=== PATIENT | male | born 1960 | race Caucasian/White ===

== ENCOUNTER → 2020-01-11 | Outpatient (CLI) | payer MEDICAID ==
[~2020-01-11] MED LIST: MILK200C4 PO
--- NOTE | 2020-01-11 14:11 | Diagnostic Imaging Report ---
PROCEDURE: US Abdomen, limited. TECHNIQUE: Multiple realtime grayscale images were obtained over the abdomen in various projections. INDICATION: Left inguinal pain. FINDINGS: Sonographic interrogation of the left groin region was performed both without and with Valsalva maneuvers. There is a heterogeneous region at this location measuring 5.5 x 2.3 x 4.1 cm which appears to increase with Valsalva, suggestive of an inguinal hernia. There appears to be some fluid within the hernia sac. IMPRESSION: Features most consistent with left inguinal hernia. Dictated by: Dictated on workstation # [id number]
== END ==
LOC: RAD 13:26
PROVIDERS: ATTEND Pediatrics
DX: K41.30 Unilateral femoral hernia, with obstruction, without gangrene, not specified as recurrent (principal)
CPT/HCPCS: 76705

== ENCOUNTER → 2021-04-27 | Outpatient (CLI) | payer MEDICAID ==
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
== END ==
LOC: RAD 10:31
PROVIDERS: ATTEND Pediatrics
DX: M47.812 Spondylosis without myelopathy or radiculopathy, cervical region (principal); S19.9XXA Unspecified injury of neck, initial encounter; V89.2XXA Person injured in unspecified motor-vehicle accident, traffic, initial encounter
CPT/HCPCS: 72141

== ENCOUNTER → 2023-06-04 | Outpatient (CLI) | payer MEDICAID ==
--- NOTE | 2023-06-04 13:37 | Diagnostic Imaging Report ---
INDICATION: M15.0, history of rheumatoid arthritis. COMPARISON: None available FINDINGS: AP Spine L1-L4: [BMD (g/cm2): 0.955] [T-Score: -2.4] [Z-Score: -2.2] [BMD Previous: na] [BMD % Change: na] LT Hip Neck: [BMD (g/cm2): 0.709] [T-Score: -2.8] [Z-Score: -1.9] LT Hip Total: [BMD (g/cm2):0.782] [T-Score:-2.2] [Z-Score: -1.8] [BMD Previous: na] [BMD % Change: na] RT Hip Neck: [BMD (g/cm2):0.762] [T-Score:-2.4] [Z-Score:-1.5] RT Hip Total: [BMD (g/cm2):0.901] [T-score:-1.4] [Z-Score:-1.0] [BMD Previous:na] [BMD % Change:na] *Indicates significant change from prior examination based on 95% confidence level. World Health Organization criteria for BMD interpretation classify patients as Normal (T-score at or above -1.0), Osteopenic (T-score between -1.0 and -2.5) or Osteoporotic (T-score at or below -2.5). LIMITATIONS AND MODIFICATION: None. FRACTURE RISK (FRAX SCORE): The ten year probability of (%): Major Osteoporotic Fracture: [12.6] Hip Fracture: [3.8] IMPRESSION: 1. Osteoporosis. 2. Baseline examination. 3. See below National Osteopor[employer] guidelines on when to potentially initiate pharmacologic therapy. Based on the National Osteoporosis [employer] Guidelines, pharmacologic treatment should be initiated in any of the following, unless clinical conditions suggest otherwise: * Any patient with prior fragility fracture of the hip or vertebrae. A spine fracture indicates 5X risk for subsequent spine fracture and 2X risk for subsequent hip fracture. * Osteoporosis (T-score <-2.5). * Postmenopausal women and men age 50 and older with low bone mass/osteopenia (T-score between -1.0 and -2.5) by DXA and 10-year major osteoporotic fracture greater than 20% or a 10-year probability of hip fracture greater than 3%. These fracture risks are supplied above in the FRAX score, if applicable. * Clinician judgement and/or patient preferences may indicate treatment for people with 10-year fracture probabilities above or below these levels. Dictated by: Dictated on workstation # [id number]
== END ==
LOC: RAD 12:14
PROVIDERS: ATTEND Pediatrics
DX: M15.0 Primary generalized (osteo)arthritis (principal); M81.0 Age-related osteoporosis without current pathological fracture
CPT/HCPCS: 77080